=== PATIENT | female | born 1995 | race Caucasian/White ===

== ENCOUNTER 2021-02-04 08:44 | Inpatient (IN) | payer MEDICAID ==
[~2021-02-04] VITALS: Ht 154.9 cm; Wt 60.5 kg
[2021-02-04] MEDS ORDERED: LACTATED RINGERS 1,000 ML IV SCH (09:30)
[2021-02-04] MEDS ORDERED: FENTANYL PF 100 MCG/2ML IV PRN ×2 (09:30→16:00)
[2021-02-04] MEDS ORDERED: SODIUM CITRATE/CITRIC ACID 30 ML UDC PO PRN (09:30)
[2021-02-04] MEDS ORDERED: TERBUTALINE 1 MG/ML, 1ML SQ PRN (09:30)
[2021-02-04] MEDS ORDERED: FENTANYL PF 100 MCG/2ML IVPush PRN (09:30)
[2021-02-04] MEDS ORDERED: TERBUTALINE 1 MG/ML, 1ML IVPush PRN (09:30)
[2021-02-04] MEDS ORDERED: METOCLOPRAMIDE 5 MG/ML, 2ML IVPush PRN (09:30)
[2021-02-04] MEDS ORDERED: ONDANSETRON 2MG/ML, 2ML IVPush PRN ×2 (09:30→16:00)
[2021-02-04] MEDS ORDERED: SODIUM CHLORIDE FLUSH 10ML SYR IVF PRN (09:30)
[2021-02-04] MEDS ORDERED: BETAMETHASONE 6 MG/ML, 5ML IM ONE ×3 (10:00→12:00)
[2021-02-04 10:06] LABS: MEAN CORPUSCULAR HEMOGLOBIN 33.8 pg (27.0-34.8); MEAN CORPUSCULAR HGB CONC 35.2 g/dL (32.4-35.8); PLATELET COUNT 166 x10^3/uL (130-400); RED CELL DISTRIBUTION WIDTH 12.9 % (9.6-15.2)
[2021-02-04] MEDS ORDERED: OXYTOCIN 30U/ 0.9% NaCL 500ML 500 ML IV ONE (10:30)
[2021-02-04] MEDS: AMPICILLIN 2 GM in SODIUM CHLORIDE 0.9% 100 ML IV SCH ×3 (10:43→22:04)
[2021-02-04] MEDS ORDERED: AZITHROMYCIN 500 MG TABLET PO ONE (12:00)
[2021-02-04] MEDS ORDERED: MAGNESIUM SULF. PMX 20GM/500ML 500 ML IV ONE (13:18)
[2021-02-04] MEDS ORDERED: MAGNESIUM SULFATE 1 GM in SODIUM CHLORIDE 0.9% 50 ML IV ONE (14:00)
[2021-02-04] MEDS: MAGNESIUM SULF. PMX 20GM/500ML 500 ML IV PRN (14:00)
[2021-02-04 14:08] LABS: MICROSCOPIC NOT IND
[2021-02-04] MEDS ORDERED: MAGNESIUM SULFATE PMX 4GM/100M 100 ML IVPB ONE (14:30)
[2021-02-04 14:41] LABS: AMPHETAMINE SCREEN, URINE Negative (Negative); BARBITURATE SCREEN, URINE Negative (Negative); BENZODIAZEPINE SCREEN, URINE Negative (Negative); CANNABINOID SCREEN, URINE Negative (Negative); COCAINE SCREEN, URINE Negative (Negative); METHADONE SCREEN, URINE Negative (Negative); OPIATE SCREEN, URINE Negative (Negative)
[2021-02-04] MEDS ORDERED: EPHEDRINE 50 MG/ML, 1ML IVPush PRN (16:00)
[2021-02-04] MEDS ORDERED: LABETALOL 5MG/ML, 20ML IV PRN (16:00)
[2021-02-04] MEDS ORDERED: hydrALAzine 20 MG/ML, 1ML IV PRN (16:00)
[2021-02-04] MEDS ORDERED: HYDROcodone/APAP 7.5-325MG/15ML UDC PO PRN (16:00)
[2021-02-04] MEDS ORDERED: MEPERIDINE/PF 25MG/0.5ML IVPush PRN (16:00)
[2021-02-04] MEDS ORDERED: HYDROmorphone 2 MG/ML, 1ML IVPush PRN (16:00)
[2021-02-04] MEDS ORDERED: OXYcodone 5 MG/5 ML ORAL.SOL UDC PO PRN (16:00)
[2021-02-04] MEDS ORDERED: PROMETHAZINE 25 MG/ML, 1ML IV PRN (16:00)
[2021-02-04] MEDS ORDERED: ALBUTEROL SULFATE 2.5 MG/3 ML NPPB PRN (16:00)
[2021-02-04] MEDS ORDERED: MIDAZOLAM 1 MG/ML, 2ML IV PRN (16:00)
[2021-02-04] MEDS ORDERED: METOPROLOL 1 MG/ML, 5ML IV PRN (16:00)
[2021-02-04 20:10] LABS: ALANINE AMINOTRANSFERASE 13 U/L (12-78); ALBUMIN 2.6 g/dL (3.4-5.0); ANION GAP 8 mmol/L (5-15); CALCIUM 7.2 mg/dL (8.5-10.1); CHLORIDE 107 mmol/L (98-107)
[2021-02-04 20:12] LABS: ALKALINE PHOSPHATASE 95 U/L (45-117); BILIRUBIN,TOTAL 0.4 mg/dL (0.2-1.0); TOTAL PROTEIN 5.9 g/dL (6.4-8.2)
[2021-02-04] MEDS ORDERED: DIPHENHYDRAMINE 25 MG CAPSULE ONE (21:19)
[2021-02-04] MEDS: DIPHENHYDRAMINE 25 MG CAPSULE PO PRN (21:22)
[2021-02-05] MEDS: LACTATED RINGERS 1,000 ML IV SCH ×3 (02:54→18:00)
[2021-02-05] MEDS: MAGNESIUM SULF. PMX 20GM/500ML 500 ML IV PRN (02:54)
[2021-02-05] MEDS: AMPICILLIN 2 GM in SODIUM CHLORIDE 0.9% 100 ML IV SCH ×4 (03:57→21:47)
[2021-02-05] MEDS ORDERED: DOCUSATE 50 MG/5 ML, 10ML UDC PO PRN (08:00)
[2021-02-05] MEDS: SODIUM CHLORIDE FLUSH 3ML SYRINGE IVF SCH ×2 (09:00→21:00)
[2021-02-05] MEDS ORDERED: PRENATAL VIT/IRON/FA 1 EACH TABLET PO SCH (09:00)
[2021-02-05] MEDS: PRENATAL VITAMIN PO SCH (10:00)
[2021-02-05] MEDS ORDERED: BETAMETHASONE 6 MG/ML, 5ML IM ONE (10:30)
[2021-02-05] MEDS ORDERED: NEWBORN KIT ONE (13:57)
[2021-02-05] MEDS: DIPHENHYDRAMINE 25 MG CAPSULE PO PRN (21:47)
[2021-02-05 22:00] VITALS: BP 110/59
[2021-02-06] MEDS: AMPICILLIN 2 GM in SODIUM CHLORIDE 0.9% 100 ML IV SCH ×2 (03:56→09:53)
[2021-02-06] MEDS: LACTATED RINGERS 1,000 ML IV SCH ×2 (03:56→14:00)
[2021-02-06] MEDS: PRENATAL VITAMIN PO SCH (09:00)
[2021-02-06] MEDS: SODIUM CHLORIDE FLUSH 3ML SYRINGE IVF SCH ×2 (10:00→21:43)
[2021-02-06] MEDS: DOCUSATE 100 MG CAPSULE PO PRN ×2 (11:10→22:59)
[2021-02-06 21:41] VITALS: BP 104/54
[2021-02-06] MEDS: AMOXICILLIN 250 MG/5 ML, ORAL SUSP PO SCH (21:42)
[2021-02-07] MEDS: SODIUM CHLORIDE FLUSH 3ML SYRINGE IVF SCH ×2 (09:00→20:47)
[2021-02-07] MEDS: PRENATAL VITAMIN PO SCH (09:00)
[2021-02-07] MEDS: LACTATED RINGERS 1,000 ML IV SCH ×3 (10:00→20:00)
[2021-02-07] MEDS: AMOXICILLIN 250 MG/5 ML, ORAL SUSP PO SCH ×2 (10:24→20:46)
[2021-02-07] MEDS: DOCUSATE 100 MG CAPSULE PO PRN ×2 (10:25→20:46)
[2021-02-07] MEDS ORDERED: PREN1TAB60 PO (10:36)
[2021-02-07] MEDS: DIPHENHYDRAMINE 25 MG CAPSULE PO PRN (22:35)
[2021-02-08] MEDS: LACTATED RINGERS 1,000 ML IV SCH ×2 (06:00→16:00)
[2021-02-08] MEDS: AMOXICILLIN 250 MG/5 ML, ORAL SUSP PO SCH ×2 (09:00→21:06)
[2021-02-08] MEDS: PRENATAL VITAMIN PO SCH (09:00)
[2021-02-08] MEDS: SODIUM CHLORIDE FLUSH 3ML SYRINGE IVF SCH ×2 (09:00→21:08)
[2021-02-08] MEDS: DOCUSATE 100 MG CAPSULE PO PRN ×2 (09:30→21:06)
[2021-02-08 09:41] VITALS: BP 109/57
[2021-02-08] MEDS: DIPHENHYDRAMINE 25 MG CAPSULE PO PRN (21:06)
[2021-02-08 21:10] VITALS: BP 112/56
[2021-02-09] MEDS ORDERED: ACETAMINOPHEN 325 MG TABLET ONE (01:10)
[2021-02-09] MEDS: ACETAMINOPHEN 325 MG TABLET PO PRN ×4 (01:30→21:45)
[2021-02-09] MEDS: LACTATED RINGERS 1,000 ML IV SCH ×3 (02:00→21:48)
[2021-02-09] MEDS: DOCUSATE 100 MG CAPSULE PO PRN ×2 (07:45→21:45)
[2021-02-09] MEDS: SODIUM CHLORIDE FLUSH 3ML SYRINGE IVF SCH ×2 (08:00→21:45)
[2021-02-09] MEDS: PRENATAL VITAMIN PO SCH (09:00)
[2021-02-09] MEDS: AMOXICILLIN 250 MG/5 ML, ORAL SUSP PO SCH ×2 (10:00→21:45)
[2021-02-09] MEDS: DIPHENHYDRAMINE 25 MG CAPSULE PO PRN (21:45)
[2021-02-09 21:50] VITALS: BP 112/60
[2021-02-10] MEDS: LACTATED RINGERS 1,000 ML IV SCH (05:50)
[2021-02-10] MEDS: ACETAMINOPHEN 325 MG TABLET PO PRN (05:50)
[2021-02-10 08:01] VITALS: BP 107/53
[2021-02-10] MEDS: DOCUSATE 100 MG CAPSULE PO PRN (08:34)
[2021-02-10] MEDS: AMOXICILLIN 250 MG/5 ML, ORAL SUSP PO SCH ×2 (08:35→21:00)
[2021-02-10] MEDS: BUTALB/APAP/CAFFEINE 50MG/325MG/40MG PO PRN ×2 (15:58→21:00)
[2021-02-10] MEDS: DIPHENHYDRAMINE 25 MG CAPSULE PO PRN (21:00)
[2021-02-10] MEDS: SODIUM CHLORIDE FLUSH 3ML SYRINGE IVF SCH (22:00)
[2021-02-11] MEDS: BUTALB/APAP/CAFFEINE 50MG/325MG/40MG PO PRN ×3 (04:05→21:57)
[2021-02-11] MEDS: PRENATAL VITAMIN PO SCH (09:00)
[2021-02-11] MEDS: AMOXICILLIN 250 MG/5 ML, ORAL SUSP PO SCH (09:42)
[2021-02-11] MEDS: DOCUSATE 100 MG CAPSULE PO PRN (09:45)
[2021-02-11] MEDS: SODIUM CHLORIDE FLUSH 3ML SYRINGE IVF SCH ×2 (09:50→19:00)
[2021-02-11] MEDS: DIPHENHYDRAMINE 25 MG CAPSULE PO PRN (21:56)
[2021-02-12] MEDS: BUTALB/APAP/CAFFEINE 50MG/325MG/40MG PO PRN ×5 (05:50→22:47)
[2021-02-12] MEDS: SODIUM CHLORIDE FLUSH 3ML SYRINGE IVF SCH ×2 (09:00→21:00)
[2021-02-12] MEDS: PRENATAL VITAMIN PO SCH (09:00)
[2021-02-12] MEDS: DIPHENHYDRAMINE 25 MG CAPSULE PO PRN (21:14)
[2021-02-13] MEDS: ACETAMINOPHEN 325 MG TABLET PO PRN (00:05)
[2021-02-13 00:35] LABS: BASOPHILS % (AUTO) 0 % (0-1); EOSINOPHILS % (AUTO) 0 % (1-7); LYMPHOCYTES % (AUTO) 13 % (22-44); MEAN CORPUSCULAR HEMOGLOBIN 33.6 pg (27.0-34.8); MEAN CORPUSCULAR HGB CONC 35.2 g/dL (32.4-35.8); MEAN PLATELET VOLUME 7.6 fL (7.4-10.4); MONOCYTES % (AUTO) 2 % (2-9); NEUTROPHILS % (AUTO) 85 % (42-75); PLATELET COUNT 164 x10^3/uL (130-400); RED BLOOD COUNT 3.12 x10^6/uL (3.82-5.3); RED CELL DISTRIBUTION WIDTH 13.1 % (9.6-15.2)
[2021-02-13 00:36] LABS: MD NO
[2021-02-13] MEDS: LACTATED RINGERS 1,000 ML IV SCH ×4 (07:15→18:00)
[2021-02-13] MEDS ORDERED: SODIUM CITRATE/CITRIC ACID 15 ML UDC ONE (08:22)
[2021-02-13] MEDS ORDERED: METOCLOPRAMIDE 5 MG/ML, 2ML ONE (08:22)
[2021-02-13] MEDS ORDERED: morphine SULFATE/PF 0.5 MG/ML, 10ML ONE (08:55)
[2021-02-13] MEDS: PRENATAL VITAMIN PO SCH (09:00)
[2021-02-13] MEDS: SODIUM CHLORIDE FLUSH 3ML SYRINGE IVF SCH ×2 (09:00→21:00)
[2021-02-13] MEDS ORDERED: SODIUM CHLORIDE FLUSH 0.9%, 20 ML ONE (09:08)
[2021-02-13] MEDS ORDERED: OXYTOCIN 10 UNITS/ML, 1ML ONE (09:08)
[2021-02-13] MEDS ORDERED: ONDANSETRON 2MG/ML, 2ML ONE (09:08)
[2021-02-13] MEDS ORDERED: PHENYLEPHRINE 10 MG/ML ONE (09:08)
[2021-02-13] MEDS ORDERED: KETOROLAC 30 MG/1 ML ONE (09:08)
[2021-02-13] MEDS ORDERED: CEFAZOLIN 1,000 MG ONE (09:08)
[2021-02-13] MEDS ORDERED: DEXAMETHASONE 4 MG/ML, 1ML ONE (09:08)
[2021-02-13] MEDS ORDERED: FENTANYL PF 100 MCG/2ML ONE ×3 (09:21→10:46)
[2021-02-13] MEDS ORDERED: SODIUM CITRATE/CITRIC ACID 30 ML UDC PO ONE (10:00)
[2021-02-13] MEDS ORDERED: METOCLOPRAMIDE 5 MG/ML, 2ML IV ONE (10:00)
[2021-02-13] MEDS ORDERED: MISOPROSTOL 200 MCG TABLET PR PRN (10:00)
[2021-02-13] MEDS ORDERED: OXYcodone/APAP 5/325MG TABLET PO PRN (10:00)
[2021-02-13] MEDS ORDERED: ONDANSETRON 2MG/ML, 2ML IV PRN (10:00)
[2021-02-13] MEDS ORDERED: ACETAMINOPHEN 325 MG TABLET PO PRN ×2 (10:00)
[2021-02-13] MEDS ORDERED: AMPICILLIN 250 MG INJ IV SCH (10:00)
[2021-02-13] MEDS ORDERED: METHYLERGONOVINE 0.2 MG/ML IM PRN (10:00)
[2021-02-13] MEDS: OXYTOCIN 30U/ 0.9% NaCL 500ML 500 ML IV SCH ×2 (10:00→20:00)
[2021-02-13] MEDS ORDERED: OXYcodone 5 MG/5 ML ORAL.SOL UDC ONE (10:11)
[2021-02-13] MEDS ORDERED: OXYcodone 5 MG/5 ML ORAL.SOL UDC PO PRN (10:30)
[2021-02-13] MEDS: FENTANYL PF 100 MCG/2ML IVPush PRN ×4 (10:42→12:36)
[2021-02-13] MEDS: AMPICILLIN 2 GM in SODIUM CHLORIDE 0.9% 100 ML IV SCH ×2 (10:52→19:31)
[2021-02-13] MEDS: SIMETHICONE 80 MG CHEW TAB PO PRN ×2 (11:02→18:57)
[2021-02-13] MEDS ORDERED: ONDANSETRON 2MG/ML, 2ML IVPush PRN (13:00)
[2021-02-13] MEDS ORDERED: GENTAMICIN PER PHARMACY MC PRN (13:00)
[2021-02-13] MEDS ORDERED: morphine SULFATE 10 MG/ML, 1ML IVPush PRN (13:00)
[2021-02-13] MEDS ORDERED: DIPHENHYDRAMINE 50 MG/ML, 1ML IV PRN (13:00)
[2021-02-13] MEDS ORDERED: NO SEDATIVES, TRANQUILIZERS OR ANTIEMETICS XX SCH (13:00)
[2021-02-13] MEDS ORDERED: EPHEDRINE 50 MG/ML, 1ML IVPush PRN (13:00)
[2021-02-13] MEDS ORDERED: NALOXONE 0.4 MG/ML, 1ML IV PRN (13:00)
[2021-02-13] MEDS ORDERED: METOCLOPRAMIDE 5 MG/ML, 2ML IVPush PRN (13:00)
[2021-02-13] MEDS ORDERED: PHARMACOKINETIC MONITORING MC PRN (13:30)
[2021-02-13] MEDS ORDERED: PHARMACOKINETIC CONSULTATION MC ONE (13:30)
[2021-02-13] MEDS: GENTAMICIN 100 MG in SODIUM CHLORIDE 0.9% 50 ML IV SCH ×2 (13:50→21:59)
[2021-02-13] MEDS: OXYcodone/APAP 5/325MG TABLET PO PRN ×2 (14:34→18:58)
[2021-02-13 15:09] VITALS: BP 97/59
[2021-02-13] MEDS: KETOROLAC 30 MG/1 ML IVPush SCH ×2 (15:30→21:30)
[2021-02-13] MEDS: KETOROLAC 30 MG/1 ML IV SCH ×2 (16:10→22:00)
[2021-02-13 19:30] VITALS: BP 90/54
[2021-02-13 23:30] VITALS: BP 90/55
[2021-02-14] MEDS: LACTATED RINGERS 1,000 ML IV SCH ×2 (00:59→16:00)
[2021-02-14] MEDS: OXYcodone/APAP 5/325MG TABLET PO PRN ×5 (00:59→21:36)
[2021-02-14] MEDS ORDERED: MORPHINE SULFATE 4 MG/ML, 1ML IVPush PRN (01:00)
[2021-02-14 01:15] LABS: BASOPHILS % (AUTO) 0 % (0-1); EOSINOPHILS % (AUTO) 0 % (1-7); LYMPHOCYTES % (AUTO) 7 % (22-44); MEAN CORPUSCULAR HEMOGLOBIN 33.9 pg (27.0-34.8); MEAN CORPUSCULAR HGB CONC 35.2 g/dL (32.4-35.8); MEAN PLATELET VOLUME 7.7 fL (7.4-10.4); MONOCYTES % (AUTO) 2 % (2-9); NEUTROPHILS % (AUTO) 91 % (42-75); PLATELET COUNT 118 x10^3/uL (130-400); RED CELL DISTRIBUTION WIDTH 13.1 % (9.6-15.2)
[2021-02-14 01:16] LABS: MD NO
[2021-02-14] MEDS: AMPICILLIN 2 GM in SODIUM CHLORIDE 0.9% 100 ML IV SCH (03:23)
[2021-02-14] MEDS: KETOROLAC 30 MG/1 ML IV SCH ×2 (04:08→10:02)
[2021-02-14 04:10] VITALS: BP 92/55
[2021-02-14 05:27] LABS: CREATININE 0.56 mg/dL (0.55-1.02)
[2021-02-14] MEDS: GENTAMICIN 100 MG in SODIUM CHLORIDE 0.9% 50 ML IV SCH (05:41)
[2021-02-14] MEDS: OXYTOCIN 30U/ 0.9% NaCL 500ML 500 ML IV SCH ×2 (06:00→16:00)
[2021-02-14 08:10] VITALS: BP 89/53
[2021-02-14] MEDS: PRENATAL VITAMIN PO SCH (09:00)
[2021-02-14] MEDS: DOCUSATE 100 MG CAPSULE PO PRN ×2 (10:02→21:36)
[2021-02-14] MEDS: PRENATAL VIT/IRON/FA 1 EACH TABLET PO SCH (10:02)
[2021-02-14 12:30] VITALS: BP 96/59
[2021-02-14] MEDS: FERROUS SULFATE 325 MG TABLET PO SCH (13:18)
[2021-02-14] MEDS: IBUPROFEN 600 MG TABLET PO PRN ×2 (17:15→23:36)
[2021-02-14 19:40] VITALS: BP 94/61
[2021-02-15] MEDS: OXYcodone/APAP 5/325MG TABLET PO PRN ×3 (01:42→14:55)
[2021-02-15] MEDS: SIMETHICONE 80 MG CHEW TAB PO PRN (01:42)
[2021-02-15] MEDS: OXYTOCIN 30U/ 0.9% NaCL 500ML 500 ML IV SCH ×2 (02:00→12:00)
[2021-02-15] MEDS: LACTATED RINGERS 1,000 ML IV SCH ×2 (02:00→12:00)
[2021-02-15] MEDS: IRON MC SCH ×2 (02:30→10:30)
[2021-02-15] MEDS: COLACE MC SCH ×2 (02:30→10:30)
[2021-02-15] MEDS: IBUPROFEN 600 MG TABLET PO PRN ×2 (06:02→13:40)
[2021-02-15 07:30] VITALS: BP 91/56
[2021-02-15] MEDS: FERROUS SULFATE 325 MG TABLET PO SCH (08:00)
[2021-02-15] MEDS: DOCUSATE 100 MG CAPSULE PO PRN (09:00)
[2021-02-15] MEDS: PRENATAL VITAMIN PO SCH (09:00)
[2021-02-15] MEDS: PRENATAL VIT/IRON/FA 1 EACH TABLET PO SCH (09:00)
[2021-02-15] MEDS ORDERED: IBUP-1222 PO ×2 (12:49→12:54)
[2021-02-15] MEDS ORDERED: ACET325T26 PO (12:49)
[2021-02-15] MEDS ORDERED: DOCU-131 PO (12:49)
[2021-02-15] MEDS ORDERED: [UNRECOGNIZED DRUG - OTHER] PO (12:49)
[2021-02-15] MEDS ORDERED: FERR-36 PO (12:49)
[2021-02-15] MEDS ORDERED: OXYC1TAB14 PO ×2 (12:51→12:54)
== END 2021-02-15 15:45 | disposition home or self-care (01) | DRG 786 ==
LOC: LDOP 08:44 → LDIP 09:45 → UNDOADMIN 09:45 → 2NW 02-13 13:42
PROVIDERS: ADMIT Obstetrics & Gynecology; ATTEND Obstetrics & Gynecology
PROC: 10D00Z1 Extraction of Products of Conception, Low, Open Approach (ICD-10-PCS; principal; 2021-02-13)
DX: O42.012 Preterm premature rupture of membranes, onset of labor within 24 hours of rupture, second trimester (principal); O41.1220 Chorioamnionitis, second trimester, not applicable or unspecified; O44.02 Complete placenta previa NOS or without hemorrhage, second trimester; O76 Abnormality in fetal heart rate and rhythm complicating labor and delivery; Z20.822 Contact with and (suspected) exposure to COVID-19; O90.81 Anemia of the puerperium; O87.4 Varicose veins of lower extremity in the puerperium; Z37.0 Single live birth; Z3A.26 26 weeks gestation of pregnancy
CPT/HCPCS: 36415; 76805; 80053; 80307; 81003; 82565; 82962; 83735; 84520; 85025; 85027; 86592; 86762; 86850; 86900; 86923; 87070; 87075; 87081; 87205; 87340; 87635; 87806; 88305; 89060; G0378; J0290; J0690; J0702; J1100; J1885; J2274; J2405; J3010; G0475; J1580; J2270; J2370; J2590; J2765; J3475; J7120; Q0114; Q0163